=== PATIENT | male | born 1980 | race Caucasian/White ===

== ENCOUNTER 2018-03-12 15:40 | Emergency (ER) | payer OTHER ==
[2018-03-12 16:02] VITALS: BP 146/94; PULSE 73; TEMP 98.7; BMI 33.2
--- NOTE | 2018-03-12 16:30 | PDOC ---
History of Present Illness - General History Source: Patient, Spouse Exam Limitations: No Limitations - History of Present Illness Initial Comments: 03/12/18 16:40 The patient is a 37 year old male, with no significant past medical history, who presents to the emergency department with, 8 days of an intermittent diffuse rash over the extremities and trunk. As per patient, his rash onset 8 days ago as a itchy. He notes taking Benadryl for the rash with relief. 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 He reports one similar episode 3 months ago lasting 2 days. The patient also endorses increased stress in his personal life. He denies any changes in at home diet, lotions, or soaps. He denies any tongue, lip, or throat swelling. He denies any recent fevers, chills, headache or dizziness. He denies any recent nausea, vomit, diarrhea or constipation. He denies any recent chest pain or shortness of breath. He denies any recent dysuria, frequency, urgency or hematuria. Allergies: NKA Past surgical history: None reported. Social History: Nonsmoker. Denies EtOH use and recreational drug use. Familial History: Reviewed and noncontributory. <Srinivasa Adams - Last Filed: 03/12/18 16:40> <Kenny Jordan - Last Filed: 03/12/18 17:20> - General Chief Complaint: Rash Stated Complaint: RASH Time Seen by Provider: 03/12/18 16:11 Past History <Srinivasa Adams - Last Filed: 03/12/18 16:40> - Past Medical History CVA: No COPD: No Psychiatric Problems: Yes (Anxiety) - Suicide/Smoking/Psychosocial Hx Smoking History: Current every day smoker Number of Cigarettes Smoked Daily: 1 Information on smoking cessation initiated: Yes 'Breaking Loose' booklet given: 03/12/18 Hx Alcohol Use: Yes (occasional) Drug/Substance Use Hx: No Substance Use Type: None <Kenny Jordan - Last Filed: 03/12/18 17:20> - Past Medical History Allergies/Adverse Reactions: Allergies Allergy/AdvReac Type Severity Reaction Status Date / Time No Known Allergies Allergy Verified 03/12/18 15:54 Home Medications: Ambulatory Orders Diphenhydramine [Benadryl -] 50 mg PO HS #20 capsule 03/12/18 Lanolin Alcohol/Mo/W.pet/Mercer [Eucerin Creme] 1 applic TP BID #1 bottle Loratadine [Claritin] 10 mg PO DAILY #20 tablet 03/12/18 Review of Systems - Review of Systems Able to Perform ROS?: Yes Comments:: 03/12/18 16:41 CONSTITUTIONAL: Absent: fever, no chills, no fatigue EYES: Absent: visual changes ENT: Absent: ear pain, no sore throat CARDIOVASCULAR: Absent: chest pain, no palpitations RESPIRATORY: Absent: cough, no SOB GI: Absent: abdominal pain, no nausea, no vomiting, no constipation, no diarrhea GENITOURINARY: Absent: dysuria, no frequency, no hematuria MUSKULOSKELETAL: Absent: back pain, no arthralgia, no myalgia SKIN: Present: Diffuse rash over the trunk and extremities. NEURO: Absent: headache All Other Systems: Reviewed and Negative <Srinivasa Adams - Last Filed: 03/12/18 16:40> *Physical Exam - Vital Signs Last Vital Signs Temp Pulse Resp BP Pulse Ox 98.7 F 73 18 146/94 99 03/12/18 15:41 03/12/18 15:41 03/12/18 15:41 03/12/18 15:41 03/12/18 15:41 - Physical Exam Comments: 03/12/18 16:41 GENERAL: Well developed, well nourished. Awake and alert. No acute distress. HEENT: No swelling to the posterior oropharynx, lips, and face. Normocephalic, atraumatic. PERRLA, EOMI. No conjunctival pallor. Sclera are non-icteric. Moist mucous membranes. Oropharynx is clear. NECK: Supple. Full ROM. No JVD. Carotid pulses 2+ and symmetric, without bruits. No thyromegaly. No lymphadenopathy. CARDIOVASCULAR: Regular rate and rhythm. No murmurs, rubs, or gallops. Distal pulses are 2+ and symmetric. PULMONARY: No tightness or wheezing noted. No evidence of respiratory distress. Lungs clear to auscultation bilaterally. No rales or rhonchi. ABDOMINAL: Soft. Non-tender. Non-distended. No rebound or guarding. No organomegaly. Normoactive bowel sounds. MUSCULOSKELETAL Normal range of motion at all joints. No bony deformities or tenderness. No CVA tenderness. EXTREMITIES: No cyanosis. No clubbing. No edema. No calf tenderness. +SKIN: Diffuse urticaria over the trunk and extremities. Warm and dry. Normal capillary refill. No jaundice. NEUROLOGICAL: Alert, awake, appropriate. Cranial nerves 2-12 intact. No deficits to light touch and temperature in face, upper extremities and lower extremities. No motor deficits in the in face, upper extremities and lower extremities. Normoreflexic in the upper and lower extremities. Normal speech. Toes are down- going bilaterally. Gait is normal without ataxia. PSYCHIATRIC: Cooperative. Good eye contact. Appropriate mood and affect. <Srinivasa Adams - Last Filed: 03/12/18 16:40> - Vital Signs Last Vital Signs Temp Pulse Resp BP Pulse Ox 98.7 F 73 18 146/94 99 03/12/18 15:41 03/12/18 15:41 03/12/18 15:41 03/12/18 15:41 03/12/18 15:41 <Kenny Jordan - Last Filed: 03/12/18 17:20> Medical Decision Making - Medical Decision Making 03/12/18 17:18 Patient with mild urticaria, similar eruption several months ago, no suspicious food or exposures. Admits considerable stress. No sign of angioedema. Oropharynx , tongue, lips, and face without edema. Lungs clear. Abdomen benign Urticaria of unknown etiology, possibly idiopathic, possibly stress related. Still may be an occult allergen in the environment, although the patient is unable to identify 1 Symptomatic treatment and referral for further testing if symptoms persist or worsen. <Kenny Jordan - Last Filed: 03/12/18 17:20> *DC/Admit/Observation/Transfer - Attestations Scribe Attestion: 03/12/18 16:41 Documentation prepared by Srinivasa Adams, acting as medical reception for Kenny Mtz MD. <Srinivasa Adams - Last Filed: 03/12/18 16:40> - Discharge Dispostion Decision to Admit order: No <JulianKenny Seaman - Last Filed: 03/12/18 17:20> Diagnosis at time of Disposition: Idiopathic urticaria - Discharge Dispostion Disposition: HOME Condition at time of disposition: Stable - Prescriptions Prescriptions: Diphenhydramine [Benadryl -] 50 mg PO HS #20 capsule Lanolin Alcohol/Mo/W.pet/Mercer [Eucerin Creme] 1 applic TP BID #1 bottle Loratadine [Claritin] 10 mg PO DAILY #20 tablet - Patient Instructions Printed Discharge Instructions: DI for Hives Additional Instructions: Most of the time because of hives is uncertain. Certain foods or environmental exposures can be responsible, in addition to heat and cold or stress. Try to eliminate the factors that may aggravate the condition. See your primary physician for further evaluation or consult a mock up maker as directed.
== END 2018-03-12 17:06 | disposition home or self-care (01) ==
LOC: FER 15:40
DX: L50.1 Idiopathic urticaria (principal)
CPT/HCPCS: 99281-25